=== PATIENT | male | born 1990 | race Hispanic/Latino ===

== ENCOUNTER 2020-10-26 12:36 | Emergency (ER) | payer OTHER ==
[~2020-10-26] VITALS: Ht 167.6 cm; Wt 99.8 kg
[2020-10-26 12:38] VITALS: BP 163/104
== END 2020-10-26 15:19 | disposition home or self-care (01) ==
LOC: EDH 12:36
DX: J02.9 Acute pharyngitis, unspecified (principal); R05 Cough; R51.9 Headache, unspecified; E66.9 Obesity, unspecified; Z86.16 Personal history of COVID-19; Z68.35 Body mass index [BMI] 35.0-35.9, adult
CPT/HCPCS: 99281